=== PATIENT | female | born 1975 | race Hispanic/Latino ===

== ENCOUNTER 2017-06-27 10:13 | Day surgery (SDC) | payer BC ==
[~2017-06-27 10:13] MED LIST: ANCEF/STERILE WATER 2 GM/20 ML 2 GM/20 ML SYRINGE IV NR; HEPARIN 10,000 UNITS/10 ML ONE; MARCAINE 0.5% INFILTRATI ONE; NACL 0.9% 1000 ML 1,000 ML IV SCH; NACL 0.9% 500 ML 500 ML ONE; NITROGLYCERIN SYRINGE 0 ML ONE; PROTAMINE SULFATE ONE; SODIUM BICARBONATE ONE; XYLOCAINE 1%/ EPI 1:100,000 INFILTRATI ONE
[2017-06-27 11:50] LABS: Basophils % (Auto) 1.4 % (0.0-1.8); Eosinophils % (Auto) 1.2 % (0.0-4.3); Hematocrit 35.3 % (30.3-42.9); Mean Corpuscular HGB Conc 31 % (30-34); Mean Corpuscular Hemoglobin 27 pg (28-32); Mean Corpuscular Volume 86 fl (79-97); Platelet Count 312 K/mm3 (140-440); Red Cell Distribution Width 17.1 % (13.2-15.2)
--- NOTE | 2017-06-27 11:54 | Anesthesia Consultation ---
Anesthesia Consult and Med Hx Date of service: 06/27/17 - Airway Anesthetic Teeth Evaluation: Dentures ROM Head & Neck: Adequate Mental/Hyoid Distance: Adequate - Pulmonary Exam CTA: Yes - Cardiac Exam Cardiac Exam: RRR - Pre-Operative Health Status ASA Pre-Surgery Classification: ASA3 Proposed Anesthetic Plan: General - Cardiovascular System Hx Hypertension: Yes (x 2 yrs) - Central Nervous System CVA: Yes (2013, no neuro defecits) Hx Psychiatric Problems: No - Endocrine Hx End Stage Renal Disease: Yes Hx Insulin Dependent Diabetes: Yes - Hematic Hx Anemia: Yes - Other Systems Hx Cancer: No
--- NOTE | 2017-06-27 11:54 | Anesthesia Day of Surgery ---
Anesthesia Day of Surgery - Day of Surgery Patient Examined: Yes Patient H&P Reviewed: Yes Patient is NPO: Yes
[2017-06-27] MEDS ORDERED: DILAUDID IV PRN (11:55)
[2017-06-27] MEDS ORDERED: ZOFRAN IV PRN (12:00)
[2017-06-27] MEDS ORDERED: VERSED IV NR (12:00)
[2017-06-27 12:06] LABS: BUN/Creatinine Ratio 3.2; Calcium 7.6 mg/dL (8.4-10.2); Chloride 99.3 mmol/L (98-107); Potassium 4.5 mmol/L (3.6-5.0)
[2017-06-27] MEDS ORDERED: PERCOCET 5/325 PO PRN (12:30)
[2017-06-27] MEDS ORDERED: DIPRIVAN 10 MG/ML IV ONE (12:43)
[2017-06-27] MEDS ORDERED: ZOFRAN ONE ×2 (13:34→13:59)
[2017-06-27] MEDS ORDERED: XYLOCAINE MPF 2% ONE (13:34)
[2017-06-27] MEDS ORDERED: DILAUDID ONE (13:54)
[2017-06-27] MEDS ORDERED: DECADRON ONE (14:02)
[2017-06-27] MEDS ORDERED: MARCAINE 0.5% INFILTRATI ONE ×2 (14:21)
[2017-06-27] MEDS ORDERED: NACL 0.9% IR ONE (14:21)
[2017-06-27] MEDS ORDERED: HEPARIN 10,000 UNITS/10 ML 2,000 UNIT in NACL 0.9% 500 ML 500 ML IR ONE (14:22)
[2017-06-27] MEDS ORDERED: ePHEDrine SULFATE ONE (14:50)
--- NOTE | 2017-06-27 15:54 | Operative Report ---
Operative Report Operative Report: Operative note: Date: 06/27/2017 Preoperative diagnosis: Renal failure with plans to start dialysis in the near future. Postoperative diagnosis: Same. Operation: creation of left radiocephalic AV fistula Surgeon: Ana Mota. Asst.: None Anesthesia: Gen. EBL: Minimal Findings: High bifurcation of the brachial artery. Indications: A 41-year-old lady with chronic kidney disease and plans for dialysis in the near future requiring permanent dialysis access. All risks, benefits and distal procedure were discussed patient and mother. Patient agreed and signed informed consent. Operative details: The ultrasound was performed identifying cephalic vein. It was compressible is good size throughout its length from the forearm level. Incision was made about centimeter below the elbow crease with 15 blade and carried down with electrocautery. Initially we dissected around cephalic vein mobilizing it. Next dissection was carried through the biceps aponeurosis then dissected a artery. The artery appeared to be small in size of possible radial artery. There was palpable pulse just medial and deeper to the sight and ulnar artery was palpated and seen. This patient had high bifurcation of brachial artery. Cephalic vein was transected distally and distal branches were ligated with sterile silk. It was irrigated with heparinized saline with olive-tipped syringe. Patient was heparinozed with 2000 units of heparin. Distal and proximal control for radial artery was gained with a small Silastic vessel loops. Arteriotomy was created with 11 blade and extended with Avalos scissors. Anastomosis was created with running 6-0 Prolene. For completion of anastomosis artery was flushed and irrigated with heparinized saline. When the artery was unclamped there was paplable arterial pulse and thrill in the cephalic vein. Hemostasis was achieved with electrocautery and wound was closed in 2 layers with 4-0 Monocryl. Dermabond glue applied. Needle and sponge counts were correct 2. Patient tolerated procedure well and was transferred to PACU in stable condition.
[2017-06-27] MEDS ORDERED: D50W (25GM) Vial IV ONE (15:58)
[2017-06-27] MEDS ORDERED: D50W (25GM) Syringe IV ONE (15:58)
--- NOTE | 2017-06-27 15:58 | Short Stay Summary ---
Short Stay Documentation Date of service: 06/27/17 - History H&P: obtained from office Past Medical History: stroke Social history: no significant social history - Allergies and Medications Current Medications: Allergies aspirin Allergy (Verified 06/25/17 18:05) stomach pain Home Medications Medication Instructions Recorded Confirmed Last Taken Type Clopidogrel Bisulfate [Plavix] 75 mg PO DAILY 06/25/17 06/25/17 06/19/17 07:00 History Insulin Detemir [Levemir] 6 unit SQ BID 06/25/17 06/27/17 06/26/17 18:00 History 3 Insulin Lispro [HumaLOG VIAL] 0 units SQ AC 06/25/17 06/25/17 Unknown History Losartan [Cozaar] 50 mg PO QDAY 06/25/17 06/27/17 06/27/17 07:00 History Pravastatin Sodium [Pravastatin] 10 mg PO QHS 06/25/17 06/27/17 06/26/17 18:00 History Ropinirole HCl [rOPINIRole] 2 mg PO QHS 06/25/17 06/27/17 06/26/17 18:00 History Sertraline [Zoloft] 25 mg PO QDAY 06/25/17 06/27/17 06/26/17 07:00 History Sevelamer HCl [Renagel] 400 mg PO TIDWM 06/25/17 06/27/17 06/26/17 12:00 History hydrALAZINE [Apresoline] 25 mg PO BID 06/25/17 06/27/17 06/27/17 07:00 History Active Medications Hydromorphone HCl (Dilaudid) 0.5 mg IV Q10MIN PRN PRN Reason: Pain , Severe (7-10) Stop: 06/27/17 16:00 Sodium Chloride (Nacl 0.9% 1000 Ml) 1,000 mls @ 42 mls/hr IV DIRECT HIRA Last Admin: 06/27/17 12:03 Dose: 42 mls/hr Midazolam HCl (Versed) 2 mg IV PREOP NR Stop: 06/27/17 23:59 Last Admin: 06/27/17 12:31 Dose: 2 mg - Brief post op/procedure progress note Date of procedure: 06/27/17 Pre-op diagnosis: renal failure Post-op diagnosis: same Procedure: left radiocephalic AVF Anesthesia: GETA Findings: high bifurcation of radial artery Surgeon: CECILIA PAZ Estimated blood loss: minimal Pathology: none Condition: stable - Hospital course Hospital course: uneventful - Disposition Condition at discharge: Good Disposition: DC-01 TO HOME OR SELFCARE Short Stay Discharge Plan Activity: advance as tolerated Diet: renal Wound: open to air Special Instructions: no heavy lifting Follow up with: GENARO LYNNE [Other] - 7 Days CECILIA PAZ DO [Staff Physician] - 7 Days Prescriptions: Acetaminophen/Codeine [Tylenol /Codeine # 3 tab] 1 tab PO Q4HR PRN #30 tablet PRN Reason: Pain
--- NOTE | 2017-06-27 17:13 | Post Anesthesia Evaluation ---
- Post Anesthesia Evaluation Patient Participated: Yes Airway Patent: Yes Stable Respiratory Function: Yes Nausea/Vomiting: No Temp > 96.8F: Yes Pain Manageable: Yes Adequeate Hydration: Yes Anesthesia Complications: No Block Receding Appropriately: Not Applicable Patient on Ventilator: No
[2017-06-27 18:13] VITALS: BP 126/77
== END 2017-06-27 10:14 | disposition home or self-care (01) ==
LOC: OR 10:13
PROVIDERS: ATTEND Surgery Vascular Surgery
DX: E11.22 Type 2 diabetes mellitus with diabetic chronic kidney disease (principal); I12.0 Hypertensive chronic kidney disease with stage 5 chronic kidney disease or end stage renal disease; N18.6 End stage renal disease; D64.9 Anemia, unspecified; E78.00 Pure hypercholesterolemia, unspecified; Z86.73 Personal history of transient ischemic attack (TIA), and cerebral infarction without residual deficits; Z99.2 Dependence on renal dialysis; Z98.51 Tubal ligation status; Z98.890 Other specified postprocedural states; Z88.8 Allergy status to other drugs, medicaments and biological substances; Z79.899 Other long term (current) drug therapy; Z79.4 Long term (current) use of insulin
CPT/HCPCS: 36415; 36821; 80048; 81025; 82962; 85025; J0690; J1100; J1170; J1644; J2250; J2405; J2704; J7030; J7040; J1815; J2720